=== PATIENT | female | born 1945 | race Caucasian/White ===

== ENCOUNTER 2024-07-18 07:32 | Day surgery (SDC) | payer MEDICARE, OTHER, SELFPAY ==
--- OUTSIDE RECORDS SUMMARY | 2024-07-18 07:36 | XMS_ITS | Clinical Summary ---
Author Organization [facility] Address [address] [place] [id number] Care Team Providers Care Manager Transplant Name Role Phone Unavailable Primary Care Provider Unavailabl e Source Comments Patient records contain information from all sites at [facility]. For routine questions regarding patient records, call [phone] during business hours, M-F 8:00 AM - 5:00 PM Central Time. Record requests for emergency care only can be directed to [phone] at any time.[facility] Allergies Active Allergy Reactions Criticality Noted Date Comments Loratadine Palpitations High 11/22/2014 Medications * This document contains information received from the source organization and may not represent a complete record from that organization. acetaminophen (TYLENOL) 325 mg tablet Take 650 mg by mouth. Active calcium carbonate-vitam in D3 1,500 mg (600 mg calcium)-400 unit per tablet Take 1 tablet by mouth 2 (two) times a day. 2 Active estradiol (VAGIFEM) 10 mcg vaginal tablet INSERT 1 TABLET VAGINALLY ONCE WEEKLY 8 Active fluticasone propionate (FLONASE) 50 mcg/actuation nasal spray Administer 2 sprays into nostril(s). 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, in [place], [place] [address] [place] [phone] Haley Thompson M.D. from Last 3 Months Social History Tobacco Use Types Packs/Day Years Used Date Smoking Tobacco: Never Smokeless Tobacco: Never Tobacco Cessation:Counseling Given: Not Answered Humiliation, Afraid, Rape, and Kick questionnair e Answer Date Recorded Within the last year, have y ou been afraid of your partner or ex-partner? No 11/01/2022 Within the last year, have y ou been humiliated or emotionally abused in other ways by your partner or ex-partner? No Within the last year, have y ou been kicked, hit, slapped, or otherwise physically hurt by your partner or ex-partner? No 11/01/2022 Within the last year, have y ou been raped or forced to have any kind of sexual activity by your partner or ex-partner? No 11/01/2022 Overall Financial Resource Strain (CARDIA) Answe r Date Recorded How hard is it for you to pa y for the very basics like food, housing, medical care, and heating? Not hard at all 11/01/2022 Exercise Vital Sign Answer Date Recorde d On average, how many days pe r week do you engage in moderate to strenuous exercise (like a brisk walk)? 5 days 11/01/2022 On average, how many minutes do you engage in exercise at this level? 30 min 11/01/2022 Hunger Vital Sign Answer Date Recorded Within the past 12 months, y ou worried that your food would run out before you got the money to buy more. Never true 06/04/20 23 Within the past 12 months, t he food you bought just didn't last and you didn't have money to get more. Never true 11/01/2022 PRAPARE - Transportation Answer Date Re corded In the past 12 months, has l ack of transportation kept you from medical appointments or from getting medications? No 08/2022 In the past 12 months, has l ack of transportation kept you from meetings, work, or from getting things needed for daily living? No 11/01/2022 Nutrition Answer Date Recorded On average, how many serving s of fruits and vegetables do you eat per day (serving size is equal to 1 cup or approximately the size of a tennis ball)? 3-5 11/01/2022 Dental Answer Date Recorded Dental: Regular Dentist Yes 11/02/19 Employment Answer Date Recorded Employment status Retired 11/01/2022 Housing Stability Answer Date Recorded What is your living situation today? 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 Gender Identity Female 11/01/2022 5:37 PM CDT Sexual Orientation Straight 11/01/2022 5: 37 PM CDT Last Filed Vital Signs Vital Sign Reading Time Taken Comments Blood Pressure 125/68 10/20/2018 3:45 PM CDT Pulse 60 10/20/2018 3:54 PM CDT Temperature 36.4 C (97.5 F) 10/20/2018 3:36 PM CDT Respiratory Rate 16 10/20/2018 3:54 PM CDT Oxygen Saturation 99% 10/20/2018 3:54 PM CDT Inhaled Oxygen Concentration - - Weight - - Height 182.9 cm (6') 10/20/2018 1:44 PM CDT Body Mass Index - - Plan of Treatment Health Maintenance Due Date Last Done Comments Hepatitis C Screening 1945 COVID-19 Vaccine ( season) 2024 03/03/2023, 04/17/2022, 12/26/2021, Additional history exists Depression Screening (Annual PHQ-2) 05/31/2024 Fall Risk Screen (Annual) 05/31/2024 DTaP,Tdap,and Td Vaccines (2 - Td or Tdap) 07/10/2024 07/10/2014, 06/13/2004 Pneumococcal vaccine (50+ years) Completed 06/08/2016, 11/22/2014 Colonoscopy Discontinued 01/12/2019, 09/29, 10/20/2018, Additional history exists Colonoscopy Discontinued 01/12/2019, 09/29, 10/20/2018, Additional history exists Colorectal Cancer Screening Discontinued Colorectal Cancer Surveillance Discontinued Zoster Vaccines Completed 06/12/2019, 01/30, 03/18/2014 Bone Density Scan (Osteoporosis Screen) Discontinued 09/23/2020 RSV vaccine - (32-36 weeks) or 60+ years Completed 03/17/2023 Mammogram Discontinued 01/04/2024, 11/29, 11/25/2021, Additional history exists Influenza Vaccine Completed 03/22/2024, , 03/12/2022, Additional history exists CT Colonography Discontinued CT Colonography Discontinued Cologuard Discontinued FIT Discontinued IPV Vaccines Aged Out No longer eligi ble based on patient's age to complete this topic Procedures Procedure Name Priority Date/Time Associated Diagnosis Comments BI BREAST SCREENING BILATERAL WITH TOMOSYNTHESIS RAD - Routine (most inpatients and all outpatients) 01/04/2024 1:45 PM CDT Screening Mammogram Breast Cancer COLONOSCOPY Routine 10/20/2018 2:35 PM CDT Tubular Adenoma Colon Personal History from Last 3 Months or Most Recently Relevant to Health Maintenance Results * BI Breast Screening Bilateral with Tomosynthesis (01/04/2024 1:45 PM CDT) Anatomical Region Laterality Modality Breast, Breast Imaging RST L OS, Breast Imaging ARZ LOS, Breast Imaging FLA LOS Bilateral Mammography Impressions 01/04/2024 3:23 PM CDT Negative. RECOMMENDATION: Annual Screening Mammogram Patient has dense breast tissue and may benefit from supplemental screening. ASSESSMENT: BI-RADS: 1: Negative. Narrative 01/04/2024 3:23 PM CDT EXAM: BI BREAST SCREENING BILATERAL WITH TOMOSYNTHESIS Current study was evaluated with a Computer Aided Detection (CAD) system. INDICATION: Screening mammogram. COMPARISON: Prior exam(s) were available and reviewed for comparison. DENSITY: c. The breast(s) are heterogeneously dense, which may obscure small masses. FINDINGS: No findings of malignancy. No significant change since prior exam. Procedure Note Rashawn Jones M.D. - 01/04/2024 EXAM: BI BREAST SCREENING BILATERAL WITH TOMOSYNTHESIS Current study was evaluated with a Computer Aided Detection (CAD) system. INDICATION: Screening mammogram. COMPARISON: Prior exam(s) were available and reviewed for comparison. DENSITY: c. The breast(s) are heterogeneously dense, which may obscuresmall masses. FINDINGS: No findings of malignancy. No significant change since priorexam. IMPRESSION: Negative. RECOMMENDATION: Annual Screening Mammogram Patient has dense breast tissue and may benefit from supplementalscreening. ASSESSMENT: BI-RADS: 1: Negative. Haley Thompson M.D. IM BI PROCEDURES Final Result from Last 3 Months or Most Recently Relevant to Health Maintenance [place] [address] MEDICARE [facility]
--- OUTSIDE RECORDS SUMMARY | 2024-07-18 07:36 | XMS_ITS | Encounter Summary ---
Author Organization [facility] Address [address] [place] [id number] Care Team Providers Care Senior Administrator Support Name Role Phone Unavailable Primary Care Provider Unavailabl e Encounter Details Date Type Department Care Team (Late st Contact Info) Description 06/11/2024 Clinical Communication Department of Family Medicine, [facility], in [place], [place] [address] [place] [phone] Haley Thompson M.D. [address] [place] [phone] Social History Tobacco Use Types Packs/Day Years Used Date Smoking Tobacco: Never Smokeless Tobacco: Never Humiliation, Afraid, Rape, and Kick questionnair e [...] the money to buy more. Never true 11/02/19 23 Within the past 12 months, t [...] your living situation today? 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 - 06/11/2024 12:34 PM COMPUTER SYSTEMS SECURITY ANALYST Mrs. Rucker asked me to review colonoscopy records and make recommendation on timing of colonoscopy.Recommend 2025. Will discuss. UTER SYSTEMS SECURITY ANALYST documented in this encounter Plan of Treatment Not on file documented as of this encounter Visit Diagnoses Diagnosis Tubular Adenoma Colon Personal History- Primary documented in this encounter
--- OUTSIDE RECORDS SUMMARY | 2024-07-18 07:36 | XMS_ITS | Clinical Summary ---
Author Organization [employer] [facility] Address [place], [place] [address] Care Team Providers Care Music Mixer Name Role Phone Hayde Santana Primary Care Provider [phone]- [phone] Allergies Active Allergy Reactions Criticality Noted Date Comments Loratadine Tachycardia High 11/22/2014 Medications acetaminophen (TYLENOL) 325 mg tabletIndicatio ns:pain Take 650 mg by mouth 2 times daily if needed. Max acetaminophen dose: 4000mg in 24 hrs. Indications: PAIN Active medication order composer Vitamin D3 800 units and Calcium 600mg, one or two tablets daily. 0 0 Active mupirocin (BACTROBAN OINTMENT) ointmentIndicat ions:Sore in nose Apply to nose sore/crack 2-3 times a day for 1 week. 15 g 3 Active fluticasone (50 mcg per actuation) nasal solution (FLONASE)Indica tions:Rhinitis, unspecified type Inhale 2 Sprays into affected nostril(s) once daily. 16 g 12 3 Active estradioL (ESTRACE) 0.01% (0.1 mg/g) vaginal creamIndication s:Vaginal atrophy Insert 1 g into the vagina once weekly. 1 Each 3 4 Active medication order composer Magnesium gel as recommended by voyage management system operator 5 Active Active Problems Problem Noted Date Diagnosed Date Paroxysmal atrial fibrillation 03/29/2023 Osteopenia 02/22/2018 Palpitations 05/12/2016 Overview (07/29/2018): - 02/14/14 SVT episode: ER - 6 mg adenosine and 12 mg adenosine; restore SR - 02/23/14: episode treated with modified headstand - 02/23/14: poured bucket of ice over head 05/15/16 Had ablation after recurrent SVT/Atrial flutter Colon cancer screening 11/22/2014 Overview (01/06/2018): Colonoscopy 2012 at [place] - recommended follow up from [id number] GERD (gastroesophageal reflux disease) 4 MVP (mitral valve prolapse) 05/05/2010 Overview (05/05/2010): Asymptomatic. 05/05/2010 Encounters Date Type Department Care Team Description 07/06/2024 11:40 AM STOREROOM SUPERVISOR Office Visit [facility] [address] Hayde Santana DO Preoperative Exam (07/18/24 Polypectomy, Dr Cardona, [facility] [phone]) 07/06/2024 Travel 07/04/2024 Travel 06/19/2024 Telephone [facility] [place] [address] Hayde Santana DO returning call 06/16/2024 Telephone [facility] [place] [address] Hayde Santana DO Results 06/16/2024 Orders Only [facility] [address] Hayde Santana DO <No scans attached> 06/15/2024 8:15 AM STOREROOM SUPERVISOR Ancillary Procedure [facility] [place] [address] 06/15/2024 Travel 06/13/2024 1:55 PM STOREROOM SUPERVISOR Office Visit [facility] [place] [address] Hayde Santana DO Procedure (Endometrial biopsy) 06/13/2024 Travel 06/10/2024 Travel 06/08/2024 Travel 06/06/2024 7:55 AM STOREROOM SUPERVISOR Office Visit [facility] [address] [place] [address] Hayde Santana, DO Vaginal Bleeding (April 17,May 12 and May 24) 06/06/2024 Travel 06/01/2024 Travel from Last 3 Months Immunizations Name Administration Dates Next Due AMB INFLUENZA IIV3 (AGE 65+ YRS) PF (Flu Clinic Only) 03/25/2018 Amb Influenza, Inact (High-d ose Quadrivalent) (Flu Clinic Only) 02/21/2020 COVID-19 vaccine (Moderna 100mcg/0.5mL) PF, MDV 08/16/2020,07/19/2020 COVID-19 vaccine (Moderna 50 mcg/0.5mL) 12YO+ BIVALENT PF, MDV 04/17/2022 Influenza A (H1N1), Inactivated 06/13/2009 Influenza A (H1N1), Inactiva jazmin (Age >=3 Years) 06/13/2009 Influenza, High-dose Inactivated 024,03/09/2019,03/10/2017,03/12,03/06/2015,02/23/2014 Influenza, High-dose Quadriv alent Inactivated 03/10/2023,03/12/2022,03/20/2021 Influenza, IIV3 (Age 6-35 mos) 02/18/2009 Influenza, IIV3 (Age >=3 years) 03/27/20 13,03/21/2012,03/23/2011,03/21,04/17/2004 Pneumococcal Poly,23-Valent (Pneumovax) 06/08/2016 Pneumococcal conj 13-Valent (Prevnar 13) 11/22/2014 RSV, Bivalent Vaccine Recons tituted (Abrysvo 120MCG/0.5mL) 03/17/2023 Td (Age >=7 Years) 06/13/2004 Tdap 07/10/2014 Zoster (Shingrix-RZV, recombinant) 06/12/2019, Zoster (Zostavax-ZVL, live) 03/18/2014 Family History Medical History Relation Name Comments Other Brother Osbaldo lung problem: c ontrolled w Prednisone and intermittent Antibiotics Cancer Father Blake age 52 , [place] Cancer-breast Mother Vilma Osteoporosis Mother Vilma age 95, [place] bre fracture Anesthesia Problem No Family History Blood Disease No Family History Relation Name Status Comments Brother Osbaldo Alive Father Blake (Age 52) Mother Vilma (Age 95) Social History Tobacco Use Types Packs/Day Years Used Date Smoking Tobacco: Never Smokeless Tobacco: Never Tobacco Cessation:Counseling Given: Yes Alcohol Use Standard Drinks/Week Comments Not Currently 0 (1 standard drink = 0.6 oz pur e alcohol) PHQ-2 Answer Date Recorded PHQ-2 TOTAL SCORE 0 01/12/2024 Social Connections Answer Date Recorded Do you often feel lonely or isolated from those around you? 0 07/08/2023 Financial Resource Strain Answer Date R ecorded Difficulty of Paying Living Expenses 3 07/08/2023 Difficulty of Paying Living Expenses Not on file 07/08/2023 Food Insecurity Answer Date Recorded Do you worry your food will run out before you are able to buy more? 1 07/08/2023 Transportation Needs Answer Date Record ed Does lack of transportation keep you from medica l appointments? 1 07/08/2023 Does lack of transportation keep you from work, meetings or getting things that you need? 1 07/08/2023 Housing Stability Answer Date Recorded What is your housing situation today? 1 07/08/2023 Utilities Answer Date Recorded Do you have trouble paying f or utilities (for example, heat, electricity, water, phone)? 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 on file Not on diane e Not on file Obstetrics History Last Filed Vital Signs Vital Sign Reading Time Taken Comments Blood Pressure 118/77 07/06/2024 12:01 PM STOREROOM SUPERVISOR Pulse 70 07/06/2024 12:01 PM STOREROOM SUPERVISOR Temperature 36.4 C (97.5 F) 01/13/2021 7:50 AM CDT Respiratory Rate 16 05/16/2016 9:18 AM STOREROOM SUPERVISOR Oxygen Saturation 99% 07/06/2024 12:01 PM STOREROOM SUPERVISOR Inhaled Oxygen Concentration - - Weight 76.4 kg (168 lb 8 oz) 07/06/2024 12:01 PM STOREROOM SUPERVISOR Height 179.5 cm (5' 10.67) 07/06/2024 12:01 PM STOREROOM SUPERVISOR Body Mass Index 23.72 07/06/2024 12:01 PM STOREROOM SUPERVISOR Plan of Treatment Health Maintenance Due Date Last Done Comments Tetanus booster 07/10/2024 07/10/2014, 06/13/2004 Depression screening for age 12+ 01/11/2025 01/12/2024, 01/07/2023, 08/07/2021, Additional history exists Medicare Wellness for age 65+ 01/12/2025, 01/07/2023, 08/06/2021, Additional history exists BMI (ht and wt on same day) for age 18+ 07/06/2025 07/06/2024, 01/12/2024, 01/07/2023, Additional history exists Tdap Completed 07/10/2014 Pneumococcal series for age 50+ Completed 7, 11/22/2014 Hepatitis C screening for ag e 18-79 Completed 03/02/2019 Zoster (shingles) series for age 50+ Completed 06/12/2019, 02/24/2019, 03/18/2014 DEXA/DXA scan for age 65+ Completed 2020, 03/22/2018, 11/23/2014, Additional history exists RSV vaccine for adults or Completed 03/17/2023 COVID-19 vaccine series Completed 03/02/20 24, 03/03/2023, 04/17/2022, Additional history exists Influenza for age 65+ Completed 03/22/2024 , 03/10/2023, 03/12/2022, Additional history exists Procedures Procedure Name Priority Date/Time Associated Diagnosis Comments US PELVIS COMPLETE TV Routine 06/15/2024 11:06 AM STOREROOM SUPERVISOR PMB (postmenopausal bleeding) PATH TISSUE EXAM Routine 06/13/2024 4:09 PM STOREROOM SUPERVISOR PMB (postmenopausal bleeding) XR DXA BONE DENSITY 2 SITES AXIAL Routine 09/23/2020 9:24 AM CDT Osteopenia, unspecified location ANTI HCV Routine 03/02/2019 8:52 AM CDT Need for hepatitis C screening test from Last 3 Months or Most Recently Relevant to Health Maintenance Results * US PELVIS COMPLETE TV (06/15/2024 11:06 AM STOREROOM SUPERVISOR) Anatomical Region Laterality Modality Pelvis, OVARIES, UTERUS Ultrasou nd 06/15/2024 11:1 1 AM STOREROOM SUPERVISOR Impressions 06/15/2024 11:11 AM STOREROOM SUPERVISOR Endometrial thickness 2 millimeters. Endometrial fluid is present. Probable endometrial polyp measuring 17 millimeters. Dictated by Wilber Dumont MD @ 06/15/2024 11:11:03 AM (Electronically Signed) Narrative 06/15/2024 11:11 AM STOREROOM SUPERVISOR For Patients: As a result of the Cures Act, medical imaging exams and procedure reports are released immediately into your electronic medical record. You may view this report before your referring provider. If you have questions, please contact your health care provider. CLINICAL HISTORY: Postmenopausal bleeding TECHNIQUE: 2D mac scale and color Doppler images were acquired of the pelvis using a transvaginal approach. FINDINGS: The uterus measures 5.1 x 5.4 x 3.8 cm. Endometrium measures 2 millimeters. Hyperechoic nodular area associated with the endometrium measures 17 x 17 x 11 millimeters. The left ovary measures 1.6 x 1.3 x 0.9 cm in size and the right ovary is not visualized. The left ovary demonstrates normal arterial and venous blood flow on color Doppler analysis. There are no suspicious fluid collections within the cul-de-sac. Procedure Note Wilber Dumont MD - 06/15/2024 For Patients: As a result of the Cures Act, medical imagingexams and procedure reports are released immediately into your electronicmedical record. You may view this report before your referring provider.If you have questions, please contact your health care provider. CLINICAL HISTORY: Postmenopausal bleeding TECHNIQUE: 2D mac scale and color Doppler images were acquired of the pelvis using atransvaginal approach. FINDINGS: The uterus measures 5.1 x 5.4 x 3.8 cm. Endometrium measures 2millimeters. Hyperechoic nodular area associated with the endometriummeasures 17 x 17 x 11 millimeters. The left ovary measures 1.6 x 1.3 x 0.9 cm in size and the right ovary isnot visualized. The left ovary demonstrates normal arterial and venousblood flow on color Doppler analysis. There are no suspicious fluidcollections within the cul-de-sac. IMPRESSION: Endometrial thickness 2 millimeters. Endometrial fluid is present.Probable endometrial polyp measuring 17 millimeters. Dictated by Wilber Dumont MD @ 06/15/2024 11:11:03 AM (Electronically Signed) us Hayde Santana DO US Final Resu lt * PATH TISSUE EXAM (06/13/2024 4:09 PM STOREROOM SUPERVISOR) Case Report Pathology Report Case: [id number] Authorizing Provider: Hayde Santana DO Collected: 06/13/2024 1609 Ordering Location: [facility] Received: 06/13/2024 1610 Clinic Pathologist: Wilber Sexton MD Specimen: Endometrial Biopsy 06/16/2024 3:41 PM [facility] Final Diagnosis A) ENDOMETRIUM, BIOPSY: 1. Fragments of benign endometrial polyp(s) 2. Background scant atrophic endometrium 3. Negative for atypia and malignancy 06/16/2024 3:41 PM [facility] Clinical Information Postmenopausal bleeding 06/16/2024 3:41 PM [facility] Gross Description A) Received in formalin, labeled with the patient's name and date of , is a 3.0 x 1.8 x 0.1 cm aggregate of pink-qureshi mucosa admixed with clotted blood and mucous. The specimen is entirely submitted in 1 cassette. EVM 06/14/2024 06/16/2024 3:41 PM [facility] Microscopic Description The final diagnosis is based on microscopic examination of appropriate sections of all specimens. 06/16/2024 3:41 PM [facility] Additional Information Interpreted at [facility] - [address] [address] 06/16/2024 3:41 PM STOREROOM SUPERVISOR [facility] Other (Endometrial Biopsy) Non-Blood / Unknown 06/13/2024 4:09 PM STOREROOM SUPERVISOR 06/13/2024 4:10 PM STOREROOM SUPERVISOR us Hayde Santana DO PATHOLOGY/CYTOLOGY Final R esult [facility] [address] [place] [address], * (ABNORMAL) XR DXA BONE DENSITY 2 SITES AXIAL (09/23/2020 9:24 AM CDT) Anatomical Region Laterality Modality Spine, HIPS, HIPL, HIPR Other Impressions 09/26/2020 10:37 AM CDT Osteopenia. RECOMMENDATIONS: The National Osteoporosis Foundation recommends pharmacologic treatment for patients with T-scores of -2.5 or less, patients with prior history of fragility fractures, or patients with 10-year probability of greater than 3% at hips or greater than 20% of suffering major osteoporotic fractures. Recommend continued optimization of calcium and vitamin D intake through dietary means and/or supplementation and regular exercise. Repeat scan recommended in 3-5 years. Eli Yanez PA-C [facility] 09/26/2020 Narrative 09/26/2020 10:37 AM CDT XR DXA Bone Mineral Density (BMD) EXAM LOCATION: [address] [address] PATIENT NAME: Miryam Rucker DATE OF : 1945 EXAM DATE: 09/23/2020 REQUESTING PROVIDER: Shaneka Orta MD GENDER AT : female HEIGHT: 5' 11.22 (04/11/2020) WEIGHT: 158 lb 12.8 oz (04/11/2020) MENOPAUSAL STATUS: Postmenopausal RACE/ETHNICITY: White RISK FACTORS: Family History of Osteoporosis CURRENT MEDICATION FOR BONE LOSS: NONE INDICATION: Follow-up of existing osteopenia COMPARISON DATE(S): 2006 DXA scans are compared to prior studies for a patient only when the two (or more) studies were performed on the same scanner. It is not possible to compare data generated on one scanner to data from another because there are not standards in DXA equipment. This applies even if the two scanners are made by the same mortgage loan underwriter. PROCEDURE: Dual-energy x-ray absorptiometry performed with routine technique. Reporting is completed in the form of a T-score. The T-score represents the standard deviation from peak bone mass based on young healthy adult. A Z-score is used for diagnosis in premenopausal women, and for men under the age of 50. FINDINGS: RESULT LUMBAR SPINE L1 - L4 BMD: 1.166 g/cm2 T-Score: - 0.1 Z-Score: + 1.4 Comparison to baseline scan in 2006: Increase 10.5%. RESULT FEMORAL NECK Left Total Femoral Neck BMD: 0.783 g/cm2 T-Score: - 1.8 Z-Score: - 0.2 RESULT TOTAL HIP Bilateral Total Hip BMD: 0.810 g/cm2 T-Score: - 1.6 Z-Score: - 0.1 Comparison to baseline scan in 2006: Decrease -3.1%. WHO criteria: Normal: T-score at or above -1 SD Osteopenia: T-score between -1.1 and -2.4 SD Osteoporosis: T-score at or below -2.5 SD FRAX RISK CALCULATION (USED FOR OSTEOPENIA ONLY): 10-year probability of major osteoporotic fracture: 10.9%. 10-year probability of hip fracture: 2.4%. Shaneka Orta MD DEXA Final Result * ANTI HCV (03/02/2019 8:52 AM CDT) HEPATITIS C ANTIBODY Non-React june Non-React june 03/02/2019 6:26 PM CDT [facility] Comment:Antibodies to HCV no t detected; does not exclude the possibility of exposure to HCV. Blood BLOOD SPECIMEN / Unknown Venipuncture / Unknown 03/02/2019 8:52 AM CDT 03/02/2019 8:55 AM CDT Shaneka Orta MD SEND OUTS Final Result [facility] 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
[2024-07-18 07:58] VITALS: BP 143/83; PULSE 70; RESP 16; TEMP 36.8; O2SAT 95
[2024-07-18 07:59] VITALS: BMI 22.7
[2024-07-18] MEDS: 0.9 % SODIUM CHLORIDE 500 ML 500 ML 100 ML IV (08:15)
[2024-07-18] MEDS: SODIUM CHLORIDE 0.9 % (FLUSH) 10 ML SYRINGE IVF (08:16)
--- NOTE | 2024-07-18 09:22 | W.PM.H&PU ---
History & Physical Update History & Physical Update H&P Reviewed and patient assessed: No changes noted H&P Updates: Ms. Rucker is seen in pre-op prior to planned hysteroscopy, polypectomy. No interval change to her health history or questions today. She took vaginal Cytotec overnight, notes minimal cramping with this. We again reviewed the risks, benefits and alternatives to the planned procedure. Written consent was re-signed. Post-procedure restrictions and expectations reviewed. Pre-op labs reviewed and are within normal limits. No perioperative antibiotics indicated.
[2024-07-18] MEDS: BUPIVACAINE 0.5% 30 ML 20 ML INJECTION (09:47)
--- NOTE | 2024-07-18 09:48 | SUR.OPER ---
fluid deficit 60 ml
[2024-07-18 09:56] VITALS: BP 150/73; PULSE 69; RESP 16; TEMP 36.4; O2SAT 96
--- NOTE | 2024-07-18 10:03 | P.ANES_ITS ---
Anesthesia Charges Start Date/Time Anesthesia Start Date: 07/18/24 Anesthesia Start Time: 09:12 Stop Date/Time Anesthesia Stop Date: 07/18/24 Anesthesia Stop Time: 10:00 Coding CPT Codes CPT Codes: ANESTH HYSTEROSCOPE/GRAPH - 19515 ([id number]) P2 - PATIENT W/MILD SYST DISEASE, QK - DIRECTOR OF GOLF 2-4 CNCRNT ANES PROC, QX - THREAD SINGER SVC W/ MD MED DIRECTION
--- NOTE | 2024-07-18 10:03 | W.ANESCHARGE ---
Anesthesia Charges Start Date/Time Anesthesia Start Date: 07/18/24 Anesthesia Start Time: 09:12 Stop Date/Time Anesthesia Stop Date: 07/18/24 Anesthesia Stop Time: 10:00 Coding CPT Codes CPT Codes: ANESTH HYSTEROSCOPE/GRAPH - 78796 ([id number]) P2 - PATIENT W/MILD SYST DISEASE, QK - WOODEN TANK ERECTOR 2-4 CNCRNT ANES PROC, QX - TIP TESTER SVC W/ MD MED DIRECTION
--- NOTE | 2024-07-18 10:08 | W.ANESCHARGE ---
Anesthesia Charges Start Date/Time Anesthesia Start Date: 07/18/24 Anesthesia Start Time: 09:12 Stop Date/Time Anesthesia Stop Date: 07/18/24 Anesthesia Stop Time: 10:00 Summary Extremes of Age - Over 70 or under 1: MDA Coding CPT Codes CPT Codes: ANESTH HYSTEROSCOPE/GRAPH - 10400 ([id number]) QK - EMBEDDED NURSE 2-4 CNCRNT ANES PROC, QX - COUNTY AGENT SVC W/ MD MED DIRECTION, P2 - PATIENT W/MILD SYST DISEASE Additional Codes: Summary - Extremes of Age - Over 70 or under 1: MDA ([id number])
--- NOTE | 2024-07-18 10:09 | P.GYNPRC_ITS ---
Procedure Note Time Seen by Provider: 10:09 Date of procedure: 07/18/[address] [facility] bill your pro fee for this procedure?: Yes Pre-op diagnosis: Postmenopausal bleeding Suspected endometrial polyp on ultrasound Procedure: Hysteroscopy Polypectomy x2 Anesthesia: MAC and local Complications: None Surgeon: Dirk Zapien MD Estimated blood loss (mL): 5 IV fluids (mL): 500 Urine Output (mL): 250 Pathology: specimen obtained, sent to pathology Condition: stable Disposition: same day Findings: Unremarkable external genital exam, atrophic vaginal changes 1.5cm fundal endometrial polyp, mildly increased vascularity 3mm posterior polyp Otherwise inactive appearing endometrium Normal bilateral tubal ostia Procedure Description: Patient was taken to the operating room with IV running. She was positioned in dorsal lithotomy position with her legs fully supported in Yellofin stirrups. Monitored anesthesia care was administered. She was prepped and draped in the usual sterile fashion. Exam under anesthesia was performed for the above-noted findings. In and out catheterization was performed, 250cc of pale yellow urine. Small Nghia speculum was inserted. Cervix visualized and grasped along the anterior lip with a single-tooth tenaculum. Paracervical block was performed in the usual fashion with a total of 20cc 0.5% Marcaine. Uterine sound could be easily passed to sounding length of 7 cm. Cervix was serially dilated to accommodate the TRUCLEAR hysteroscope. This was assembled with saline inflow and outflow in place. The line was flushed of bubbles. The hysteroscope was advanced through the cervix into the endometrial cavity for the above noted findings. The tissue morcellator was then inserted through the operating channel. Window lock was performed. Under direct visualization, the larger fundal polyp was resected in its entirety. Tissue resection was performed without difficulty, apparent single feeding vessel was noted at the base of the polyp with slight oozing after resection. The second small posterior polyp was easily resected. Excellent hemostasis was noted. The hysteroscope and morcellator were then removed from the uterus. Tenaculum was removed from the anterior lip of cervix. Hemostasis was noted. Patient tolerated procedure well. She was taken to recovery area in stable condition. Surgical debrief completed with details as above. Total fluid deficit was 60cc.
[2024-07-18 10:11] VITALS: BP 154/74; PULSE 61; RESP 16; O2SAT 96
[2024-07-18 10:26] VITALS: BP 139/84; PULSE 69; RESP 16; O2SAT 96
[2024-07-18 10:36] VITALS: BP 127/70; PULSE 69; RESP 16; O2SAT 96
== END 2024-07-18 11:03 | disposition home or self-care (01) ==
LOC: OR 07:34
PROVIDERS: PCP Family Medicine; Visit Provider Obstetrics & Gynecology
PROC: 0UDB8ZZ Extraction of Endometrium, Via Natural or Artificial Opening Endoscopic (ICD-10-PCS; CPT 58558; principal; 2024-07-18 08:45)
DX: N95.0 Postmenopausal bleeding (principal); N84.0 Polyp of corpus uteri
CPT/HCPCS: 58558; 00952; 36415; 85018; 88305; 99100; C1782; J0665; J1100; J1885; J2405; J2704; J3010; J7030